=== PATIENT | male | born 1965 | race Caucasian/White ===

== ENCOUNTER → 2020-07-13 | Outpatient (CLI) | payer SELFPAY ==
--- NOTE | 2020-07-13 09:53 | Diagnostic Imaging Report ---
PROCEDURE: US right lower extremity venous. TECHNIQUE: Multiple real-time grayscale images were obtained over the right lower extremity in various projections. Additional spectral analysis and color Doppler duplex images were also obtained. INDICATION: Right leg swelling EXAMINATION: Grayscale and color Doppler evaluation of the deep veins of the right lower extremity were performed with waveform analysis. FINDINGS: Continuous venous flow is present. No intraluminal filling defect is identified. There is normal compressibility and response to augmentation. No abnormal perivascular fluid collection is identified. IMPRESSION: No ultrasound evidence of right lower extremity deep venous thrombosis. Dictated by: Dictated on workstation # [id number]
--- NOTE | 2020-07-13 09:59 | Diagnostic Imaging Report ---
INDICATION: Diminished palpable pulses. FINDINGS: The right lower extremity arterial velocities were unremarkable. No focal acceleration or deceleration. There is a normal high resistive triphasicity to the waveform throughout the right lower extremity arterial system with no findings of occlusion or significant stenosis. IMPRESSION: Unremarkable unilateral right lower extremity arterial Doppler and ultrasound exam. Dictated by: Dictated on workstation # [id number]
== END ==
LOC: RAD 08:30
PROVIDERS: ATTEND Nurse Practitioner Family
DX: M79.89 Other specified soft tissue disorders (principal); M79.604 Pain in right leg; R09.89 Other specified symptoms and signs involving the circulatory and respiratory systems
CPT/HCPCS: 93926

== ENCOUNTER 2023-04-16 05:37 | Outpatient (CLI) | payer OTHER ==
[~2023-04-16] VITALS: Ht 188 cm; Wt 104.1 kg
[2023-04-16] MEDS ORDERED: CITA20TA9 PO (15:13)
[2023-04-16] MEDS ORDERED: CARV12.53 PO (15:13)
[2023-04-16] MEDS ORDERED: LISI1TAB48 PO (15:13)
[2023-04-16] MEDS ORDERED: ATOR80TA76 PO (15:13)
== END 2023-04-16 15:16 | disposition home or self-care (01) ==
LOC: PREOP 05:37
PROVIDERS: ATTEND Surgery
DX: Z01.818 Encounter for other preprocedural examination (principal)

== ENCOUNTER 2023-04-28 07:17 | Day surgery (SDC) | payer OTHER ==
[~2023-04-28] VITALS: Ht 187.9 cm; Wt 104.1 kg
[~2023-04-28 07:17] MED LIST: ATOR80TA76 PO; CARV12.53 PO; CITA20TA9 PO; LISI1TAB48 PO
[2023-04-28] MEDS ORDERED: LACTATED RINGERS 1,000 ML 1,000 ML IV STA (07:42)
[2023-04-28 08:06] VITALS: BP 104/70
[2023-04-28] MEDS ORDERED: MIDAZOLAM INJ 2 MG/2 ML VIAL ONE (08:32)
[2023-04-28] MEDS ORDERED: ATROPINE INJECTION 0.4 MG/ML SDV ONE (08:47)
[2023-04-28 09:03] VITALS: BP 76/51
--- NOTE | 2023-04-28 09:03 | Progress Note-Post Operative ---
Post-Operative Progess Note Surgeon (s)/Information Technology Intern (s) Surgeon VALENTÍN WOODS DO Information Technology Intern: none Pre-Operative Diagnosis Screening Post-Operative Diagnosis Polyps int hemorrhoids Procedure & Operative Findings Date of Procedure 04/28/23 Procedure Performed/Findings Colonoscopy with hot biopsy PROCEDURE NOTE: After informed consent was obtained, the patient was brought to the endoscopy suite, placed in bed in left lateral decubitus position. He was administered IV sedation by the STATION CAPTAIN who then monitored his vitals the entire time, heart rate, blood pressure and pulse ox and the scope was inserted, pushed all the way to about 150 cm and pushed into the cecum, took a picture of appendiceal orifice and noted the ileocecal valve. Then slowly withdrew the scope insufflating to look circumferentially at the wesley starting in the cecum, up the ascending colon to the hepatic flexure, then down the transverse colon to the splenic flexure and into the descending colon. I found a small flat polyp here and did a hot biopsy. Continued down into the sigmoid where I found another small polyp and also removed it with hot biopsy. Finally, into the rectal vault and retroflexed the scope. Took a picture of the internal hemorrhoids. The patient tolerated the procedure. He was recovered in endoscopy suite. Recommended for repeat colonoscopy in 5 years. Anesthesia Type IV sedation by STATION CAPTAIN Estimated Blood Loss Estimated blood loss (mL): scant Specimens/Packing Specimens Removed Desc colon polyp Sigmoid polyp VALENTÍN WOODS DO Apr 28, 2023 09:03
--- NOTE | 2023-04-28 09:04 | Endoscopy Discharge Instruct ---
Endo Procedure/Findings Findings 1.: Polyp 2.: Internal Hemorrhoids Discharge Instructions - Activity: You might feel a little sleepy until tomorrow. This is due to the medicine you received to relax you. Until tomorrow, you should: NOT drive a car, operate machinery or power tools. NOT drink any alcoholic beverages. NOT make any important decisions or sign importortant papers. Do not return to work until tomorrow, unless otherwise instructed. Resume previous activities tomorrow. Diet: Start by taking liquids. If you tolerate liquids, advance to solid food. 1.: Colonscopy in 5 years Notify Physician - If you experience excessive bleeding, unusual abdominal pain, fever, or chest pain, contact your doctor immediately. Follow-Up: Other Follow up in my office in one week VALENTÍN WOODS DO Apr 28, 2023 09:04
[2023-04-28 09:08] VITALS: BP 84/52
[2023-04-28 09:13] VITALS: BP 93/57
[2023-04-28 09:30] VITALS: BP 95/60
[2023-04-28 09:52] VITALS: BP 95/60
--- NOTE | 2023-04-28 13:56 | Anesthesia-General Post-Op ---
MAC Patient Condition Mental Status/LOC: Same as Preop Cardiovascular: Satisfactory Nausea/Vomiting: Absent Respiratory: Satisfactory Pain: Controlled Complications: Absent Post Op Complications Complications None Follow Up Care/Instructions Patient Instructions None needed. Anesthesiology Discharge Order Discharge Order Patient is doing well, no complaints, stable vital signs, no apparent adverse anesthesia problems. No complications reported per nursing. BLANCA NOGUERA HEALTH CARE ANALYST Apr 28, 2023 13:56
== END 2023-04-28 09:57 | disposition home or self-care (01) ==
LOC: ENDO 07:17
PROVIDERS: ATTEND Surgery
DX: Z12.11 Encounter for screening for malignant neoplasm of colon (principal); D12.4 Benign neoplasm of descending colon; K63.5 Polyp of colon; K64.8 Other hemorrhoids; L82.1 Other seborrheic keratosis
CPT/HCPCS: 45384; G0416; 88305